=== PATIENT | male | born 1965 | race Caucasian/White ===

== ENCOUNTER 2021-03-03 12:29 | Inpatient (IN) ==
[2021-03-03] MEDS ORDERED: ONDANSETRON 4 MG/2 ML VIAL IV STA ×2 (13:32→16:01)
[2021-03-03] MEDS ORDERED: SODIUM CHLORIDE 0.9% 1,000 ML IV STA (13:32)
[2021-03-03 13:57] LABS: Basophils # 0.1 10*3/uL (0.0-0.2); Basophils % 0.5 % (0.0-0.8); Eosinophils % 0.3 % (0.00-10.9); Hematocrit 53.4 VOL% (42.0-52.0); Hemoglobin 18.7 GM/DL (14.0-18.0); Immature Granulocytes % 0.5 %; Immature Granulocytes Absolute 0.06 #; Lymphocytes # 2.1 10*3/uL (1.4-4.0); Lymphocytes % 16.1 % (21.2-54.2); Mean Platelet Volume 9.9 FL (9.6-12.0); Monocytes % 14.7 % (1.7-12.7); Neutrophils % 67.9 % (38.7-73.9); Platelet Count 220 T/CUMM (130-400); Red Blood Count 6.28 MC/CUMM (3.8-5.5); Red Cell Distribution Width 12.5 % (9.3-17.3); White Blood Count 12.9 T/CUMM (4-12)
[2021-03-03 14:13] LABS: Albumin 3.9 G/DL (3.4-5.0); Bilirubin,Total 1.4 MG/DL (0.2-1.0); Calcium 9.1 MG/DL (8.5-10.1); Osmolality,Calculated 275.8 MOS/KG (273-304); Potassium 4.3 MMOL/L (3.5-5.1); Total Protein 7.8 G/DL (6.4-8.2)
[2021-03-03] MEDS ORDERED: MORPHINE 4 MG/1 ML VIAL ONE (15:34)
[2021-03-03] MEDS ORDERED: amLODIPine 10 MG TABLET ONE (15:34)
[2021-03-03] MEDS ORDERED: amLODIPine 5 MG TABLET PO STA (16:00)
[2021-03-03] MEDS ORDERED: MORPHINE 4 MG/1 ML VIAL IV STA (16:00)
[2021-03-03] MEDS ORDERED: DEXTROSE 50% 25 GM/50 ML VIAL IV PRN (16:18)
[2021-03-03] MEDS ORDERED: hydrALAZINE 20 MG/1 ML VIAL IV PRN (16:18)
[2021-03-03] MEDS ORDERED: ALUM/MAG/SIMETH/LIDO VISC 1:1 30 ML BOTTLE PO STA (16:18)
[2021-03-03] MEDS ORDERED: GLUCAGON 1 MG VIAL IM PRN (16:18)
[2021-03-03] MEDS: SODIUM CHLORIDE 0.9% 1,000 ML IV SCH (16:47)
[2021-03-03] MEDS ORDERED: NICOTINE 21 MG/24 HR PATCH TRANSDERM PRN (16:54)
[2021-03-03] MEDS: HYDROmorphone 2 MG/1 ML VIAL IV PRN ×2 (19:42→22:32)
[2021-03-03] MEDS: DIVALPROEX 500 MG TABLET PO SCH (20:33)
[2021-03-03] MEDS: PANTOPRAZOLE 40 MG VIAL IV SCH (20:36)
[2021-03-03] MEDS ORDERED: ENOXAPARIN 40 MG/0.4 ML SYRINGE SUBCUT SCH (21:00)
[2021-03-03 23:14] LABS: Barbiturates Screen,Urine Negative (Negative); Benzodiazepines Screen,Urine Negative (Negative); Cannabinoid Screen,Urine Positive (Negative); Opiate Screen,Urine Positive (Negative); Phencyclidine Screen,Urine Negative (Negative)
[2021-03-04] MEDS: SODIUM CHLORIDE 0.9% 1,000 ML IV SCH ×3 (01:39→17:10)
[2021-03-04] MEDS: ONDANSETRON 4 MG/2 ML VIAL IV PRN ×3 (03:06→18:48)
[2021-03-04] MEDS: HYDROmorphone 2 MG/1 ML VIAL IV PRN ×5 (05:34→22:56)
[2021-03-04 06:34] LABS: Basophils # 0.1 10*3/uL (0.0-0.2); Basophils % 0.8 % (0.0-0.8); Eosinophils # 0.1 10*3/uL (0.0-0.87); Eosinophils % 0.9 % (0.00-10.9); Hematocrit 41.2 VOL% (42.0-52.0); Hemoglobin 13.9 GM/DL (14.0-18.0); Immature Granulocytes % 0.5 %; Immature Granulocytes Absolute 0.05 #; Lymphocytes # 2.5 10*3/uL (1.4-4.0); Lymphocytes % 25.4 % (21.2-54.2); Mean Corpuscular HGB Conc 33.7 GM/DL (32-36); Mean Corpuscular Volume 86.7 FL (87-102); Mean Platelet Volume 9.6 FL (9.6-12.0); Monocytes % 13.6 % (1.7-12.7); Neutrophils % 58.8 % (38.7-73.9); Platelet Count 149 T/CUMM (130-400); Red Blood Count 4.75 MC/CUMM (3.8-5.5); Red Cell Distribution Width 12.5 % (9.3-17.3); White Blood Count 9.9 T/CUMM (4-12)
[2021-03-04 07:37] LABS: Albumin 2.6 G/DL (3.4-5.0); Bilirubin,Total 0.4 MG/DL (0.2-1.0); Calcium 7.7 MG/DL (8.5-10.1); Osmolality,Calculated 273.7 MOS/KG (273-304); Potassium 3.7 MMOL/L (3.5-5.1); Risk Ratio 5.17; Total Protein 5.5 G/DL (6.4-8.2)
[2021-03-04] MEDS: amLODIPine 10 MG TABLET PO SCH (08:28)
[2021-03-04] MEDS: PANTOPRAZOLE 40 MG VIAL IV SCH ×2 (08:28→20:11)
[2021-03-04] MEDS ORDERED: ALUM/MAG/SIMETH/LIDO VISC 1:1 30 ML BOTTLE PO ONE (10:24)
[2021-03-04] MEDS: DIVALPROEX 500 MG TABLET PO SCH (20:10)
[2021-03-05] MEDS: SODIUM CHLORIDE 0.9% 1,000 ML IV SCH ×2 (00:50→11:40)
[2021-03-05 05:21] LABS: Basophils # 0.1 10*3/uL (0.0-0.2); Basophils % 0.6 % (0.0-0.8); Eosinophils # 0.2 10*3/uL (0.0-0.87); Eosinophils % 1.7 % (0.00-10.9); Hematocrit 38.7 VOL% (42.0-52.0); Hemoglobin 13.3 GM/DL (14.0-18.0); Immature Granulocytes % 0.4 %; Immature Granulocytes Absolute 0.04 #; Lymphocytes # 2.2 10*3/uL (1.4-4.0); Lymphocytes % 23.1 % (21.2-54.2); Mean Corpuscular HGB Conc 34.4 GM/DL (32-36); Mean Corpuscular Volume 87.4 FL (87-102); Monocytes % 14.5 % (1.7-12.7); Neutrophils % 59.7 % (38.7-73.9); Platelet Count 154 T/CUMM (130-400); Red Blood Count 4.43 MC/CUMM (3.8-5.5); Red Cell Distribution Width 12.2 % (9.3-17.3); White Blood Count 9.3 T/CUMM (4-12)
[2021-03-05 05:41] LABS: Calcium 8.2 MG/DL (8.5-10.1); Osmolality,Calculated 275.4 MOS/KG (273-304); Potassium 3.8 MMOL/L (3.5-5.1)
[2021-03-05] MEDS ORDERED: LACTATED RINGERS 1,000 ML IV SCH (07:00)
[2021-03-05] MEDS ORDERED: propofoL 200 MG/20 ML VIAL IV ONE ×2 (07:21→07:28)
[2021-03-05] MEDS ORDERED: LIDOCAINE 2% 5 ML VIAL ONE (07:21)
[2021-03-05 08:04] VITALS: BP 106/69
[2021-03-05] MEDS: PANTOPRAZOLE 40 MG VIAL IV SCH (08:35)
[2021-03-05] MEDS: amLODIPine 10 MG TABLET PO SCH (08:35)
[2021-03-06 15:55] LABS: H pylori Specimen source STOOL; Helicobacter pylori Result Not Detected
== END 2021-03-05 11:39 | disposition home or self-care (01) | DRG 384 ==
LOC: N.ED 12:29 → N.EDINP 12:29 → N.5E 17:45 → SUATTDRO 19:00
PROVIDERS: ADMIT Internal Medicine; ATTEND Internal Medicine